=== PATIENT | female | born 1995 | race Caucasian/White ===

== ENCOUNTER 2020-06-28 07:24 | Inpatient (IN) | payer OTHER ==
[~2020-06-28 07:24] MED LIST: COLACE100 MG PO; FEOSOL325 MG PO; IBUPROFEN800 MG PO; OXYCODONE-ACET1 EAC1 PO; PRENATAL FORMU1 EACH PO
[2020-06-28 08:16] LABS: HCT 33.9 % (37.0-47.0); HGB 10.9 g/dl (12.5-16.0); MCH 30.5 pg (25.0-31.0); MCHC 32.2 g/dL (32.0-36.0); MPV 13.5 fL (6.0-9.5); RBC 3.57 M/uL (4.20-5.40); RDW 13.8 % (11.5-14.0); WBC 10.7 K/uL (4.0-10.5)
[2020-06-28 10:09] LABS: BILIRUBIN NEGATIVE (NEGATIVE); BLOOD 1+ Ery/uL (NEGATIVE); CLARITY CLEAR (CLEAR); COLOR YELLOW (YELLOW); GLUCOSE (U) NORMAL (NORMAL); LEUKOCYTES NEGATIVE Leu/uL (NEGATIVE); NITRITE NEGATIVE (NEGATIVE); PROTEIN NEGATIVE (NEGATIVE); SPECIFIC GRAVITY >=1.030 (1.001-1.030); UROBILINOGEN 0.2 mg/dL (0.2-1.0)
[2020-06-28 10:15] LABS: BACTERIA TRACE; MUCOUS TRACE
[2020-06-29 06:02] LABS: HCT 27.7 % (37.0-47.0); HGB 9.1 g/dl (12.5-16.0); MCH 31.1 pg (25.0-31.0); MCHC 32.9 g/dL (32.0-36.0); MCV 94.5 fL (78.0-100.0); RBC 2.93 M/uL (4.20-5.40); RDW 13.8 % (11.5-14.0); WBC 8.1 K/uL (4.0-10.5)
== END 2020-06-29 13:50 | disposition home or self-care (01) | DRG 787 ==
LOC: FOB 07:24
PROVIDERS: ADMIT Obstetrics & Gynecology
PROC: 4A1HX4Z Monitoring of Products of Conception, Cardiac Electrical Activity, External Approach (ICD-10-PCS; 2020-06-28)
PROC: 10D00Z1 Extraction of Products of Conception, Low, Open Approach (ICD-10-PCS; principal; 2020-06-28 09:00)
PROC: 3E0234Z Introduction of Serum, Toxoid and Vaccine into Muscle, Percutaneous Approach (ICD-10-PCS; 2020-06-29)
DX: O34.211 Maternal care for low transverse scar from previous cesarean delivery (principal); O36.0930 Maternal care for other rhesus isoimmunization, third trimester, not applicable or unspecified; N85.8 Other specified noninflammatory disorders of uterus; Z3A.39 39 weeks gestation of pregnancy; Z37.0 Single live birth; Z20.822 Contact with and (suspected) exposure to COVID-19; D64.9 Anemia, unspecified
CPT/HCPCS: 36415; 81001; 85461; J0456; J0690; J1200; J1885; J2274; J2370; J2405; J2790; J2916; J3010; J7050; J7120; U0002